=== PATIENT | male | born 1950 | race Caucasian/White ===

== ENCOUNTER 2024-08-02 08:47 | Inpatient (IN) | payer OTHER, SELFPAY ==
[2024-08-02] VITALS (9 sets, daily range): BP systolic 144–186; BP diastolic 73–94; BMI 30.5; BMI 28.9
[2024-08-02 04:21] LABS: % Basophils 0.3 % (0-2); % Eosinophils 0.6 % (0-6); % Immature Granulocytes 0.5 % (0-0.5); % Lymphocytes 7.5 % (20.5-51.1); % Monocytes 7.1 % (1.7-9.3); Absolute Eosinophils 0.1 10^3/uL (0-0.7); Absolute Immature Granulocytes 0.1 10^3/uL (0-0.05); Absolute Lymphocytes 0.8 10^3/uL (1.2-3.4); Absolute Monocytes 0.8 10^3/uL (0.1-0.6); Hematocrit 35.8 % (39.0-52.0); Hemoglobin 12.3 g/dL (13.0-18.0); Mean Corp Hgb Conc. 34.4 g/dL (33.0-37.0); Mean Corpuscular Hgb 28.3 pg (27.0-31.0); Mean Corpuscular Volume 82.3 fL (80.0-94.0); Mean Platelet Volume 9.1 fL (7.4-10.4); Nucleated Red Blood Cells % 0 % (-); Platelet Count 147 10^3/uL (130-400); Red Blood Cell Count 4.35 10^6/uL (4.70-6.10); Red Cell Dist. Width 13.2 % (11.5-14.5); White Blood Cell Count 10.7 10^3/uL (4.8-10.8)
[2024-08-02 04:51] LABS: ALT (SGPT) 26 U/L (0-50); AST (SGOT) 25 U/L (17-59); Albumin 3.9 g/dl (3.5-5.0); Alkaline Phosphatase 70 U/L (38-126); Blood Urea Nitrogen 21 mg/dl (9-20); Carbon Dioxide 24 mmol/L (22-30); Chloride 103 mmol/L (98-107); Estimated Creatinine Clearance 86 ml/min; Glucose 217 mg/dl (70-99); INR 1.07; Lipase 75 U/L (23-300); PT 14.2 Sec (11.4-14.6); Potassium 4.1 mmol/L (3.5-5.1); Sodium 136 mmol/L (135-145); Total Bilirubin 0.7 mg/dl (0.2-1.3); Total Protein 6.8 g/dl (6.3-8.2); eGFR > 60.00
[2024-08-02 04:52] LABS: APTT 31.1 Sec (23.4-35.0)
[2024-08-02 04:54] LABS: NT-proBNP 45.5 pg/ml; Troponin I < 0.012 ng/ml
[2024-08-02 04:55] LABS: D-Dimer 0.57 ug/mlFEU (0.00-0.50)
[2024-08-02 05:27] LABS: TSH 4.07 uIU/ml (0.47-4.68)
--- NOTE | 2024-08-02 06:19 | ED.GENMED ---
History of Present Illness
General
Chief Complaint: Blood Pressure Problem
Source: patient
Time Seen by Provider: 08/02/24 03:53
Nursing documentation reviewed up to this point in time: agreed with
History of Present Illness
History of Present Illness:
74-year-old male who presents to the emergency department for cough. He patient states that he has had some blood in his expectorated. Patient states that his cough began approximately 4 to 5 days prior to. He has gone to urgent care and
diagnosed with 1 to be. They did start him on Tamiflu. Patient states that since then his cough persisted. He started to notice blood when coughing. It was minimal at first but progressively worsened to the point where he states blood was coming
out of his nose. Patient was also concerned because when he had deep coughing, he had some chest pain. He denies any chest pain when not coughing or at rest. Patient denies being on any blood thinners.
Past History
Past History
ED Past Medical History: HTN
ED Past Surgical History: Other
Social History
Tobacco: Non-smoker
Drug: None
Personal:
Living: with family
Employment: Employed
Family History
Family History: Hypertension
Phy Exam
General Physical Exam
General Presentation: well appearing and no apparent distress
General Skin: warm and dry
General Habitus: normal
General Mental: alert
General Hydration: appears well hydrated
ENT Exam
ENT Exam: EOMI, pharynx normal, neck supple, normocephalic and other (Dried blood in the bilateral naris)
Eye Exam
Eye Exam: PERRL, cornea clear and conjunctiva normal
Cardiovascular Exam
Cardiovascular Exam: regular rate/rhythm, no edema, no murmur, normal peripheral pulses and tachycardia (At times tachycardic)
Pulmonary Exam
Pulmonary Exam: lungs clear, no respiratory distress, no rales, no crackles, no rhonchi, no stridor, no wheezing and no cough
Gastrointestinal Exam
Gastrointestinal Exam: normal bowel sounds, non tender, soft, no organomegaly, no pulsatile mass and non distended
Neurological Exam
Neurological Exam: alert, oriented x3, no motor deficits and speech normal
Musculoskeletal Exam
Musculoskeletal Exam: full ROM and no edema
Skin Exam
Skin Exam: normal color, warm/dry, no rash and no petechia
Psychiatric Exam
Psychiatric Exam: normal mood/affect
Course
Orders/Labs/Results
Orders:
Orders
08/02/24 03:56
Complete Blood Count/With Diff Urgent
Comprehensive Metabolic Panel Urgent
D-Dimer Urgent
Lipase Urgent
NT-proBNP Urgent
PTT Urgent
Prothrombin Time Urgent
TSH Urgent
Troponin I Urgent
08/02/24 05:36
CT Chest PE Study Urgent
Comment:
Reason For Exam: hemoptysis
08/02/24 Breakfast
1800 calorie (15 carb) Diabetic
At Your Request: Full Participation
08/02/24 06:28
Ampicillin/Sulbactam 3 G [Unasyn] 3 gm 0.9% Sodium Chloride 100 ml [Nss] 100 ml IV NOW
08/02/24 07:04
Admit/Transfer Patient As Directed
Co-Sign Provider:
Level of Care: Observation services
Assign to:: Medical/Surgical
Physician / Group: hospitalist
Diagnosis: aspiration pneumonia
Code Status As Directed
Resuscitation Status: Full Code
PRN Pain Medication Management As Directed
May give lesser potent ordered pain med per pt: Yes
preference::
Protocol:: Medication orders for pain may be administered in a
manner that supports deferring to patient preference
when the pt is:
- Requesting an ordered lesser potent pain medication.
Least to most potent pain medications are defined
as: acetaminophen < NSAID < tramadol < opioids
(morphine, oxycodone, hydromorphone).
- Requesting a lesser dose of the same medication IF
ORDERED.
- Requesting a less intrusive route of administration
if both routes are prescribed by the provider (PO <
IV).
08/02/24 07:43
Benzonatate [Tessalon Perles] 200 mg PO TIDPRN PRN
08/02/24 08:00
Losartan [Cozaar] 50 mg PO DAILY
Oseltamivir Phosphate [Tamiflu] 75 mg PO BID
08/02/24 08:16
Acetaminophen [Tylenol] 650 mg PO Q4HPRN PRN
Insulin Aspart Corrective Low [Novolog Flexpen-Low Resistance] See Protocol SC AC
Ipratropium/Albuterol Sulfate [Duoneb] 3 ml INH R Q4HPRN PRN
08/02/24 08:16
Activity As Directed
Activity Level: With Assistance
Bedside Glucose Monitoring As Directed
Frequency: AC&HS
Pneumatic Compression Sleeves As Directed
Type: Knee high
Vital Signs As Directed
Frequency: Per unit guidelines
Pulse Ox/spot Check [RESP] Routine
Quantity: 1
DX Deep Vein Thrombosis Video Routine
08/02/24 14:00
Ampicillin/Sulbactam 3 G [Unasyn] 3 gm 0.9% Sodium Chloride 100 ml [Nss] 100 ml IV Q6H
08/02/24 18:00
Rosuvastatin Calcium [Crestor] 5 mg PO QPM
Abnormal Lab Results
08/02/24
03:56
RBC 4.35 L 10^6/uL
(4.70-6.10)
Hgb 12.3 L g/dL
(13.0-18.0)
Hct 35.8 L %
(39.0-52.0)
Abs Immat Gran (auto) 0.1 H 10^3/uL
(0-0.05)
Absolute Neuts (auto) 9.0 H 10^3/uL
(1.4-6.5)
Absolute Lymphs (auto) 0.8 L 10^3/uL
(1.2-3.4)
Absolute Monos (auto) 0.8 H 10^3/uL
(0.1-0.6)
Neutrophils % 84.0 H %
(42.2-75.2)
Lymphocytes % 7.5 L %
(20.5-51.1)
D-Dimer 0.57 H ug/mlFEU
(0.00-0.50)
BUN 21 H mg/dl
(9-20)
Glucose 217 H mg/dl
(70-99)
08/02/24 03:56
08/02/24 03:56
Vital Signs
Initial and Last Documented VS:
Initial Vital Signs
BP
186/79
08/02/24 03:30
Last Documented Vital Signs
Temp Pulse Resp BP Pulse Ox
100.4 F H 94 18 159/83 98
08/03/24 13:13 08/03/24 13:13 08/03/24 13:13 08/03/24 13:13 08/03/24 13:13
*Critical Care Note
Total Time (30-74mins, 75-104mins- exclusive of procedures): Not Applicable
Update Note
Update Note:
CTA chest with IV contrast
IMPRESSION:
No pulmonary embolism. Artifact limits assessment. No definite aortic dissection or aneurysm.
Mild cardiomegaly and coronary artery disease. No pneumothorax or pleural effusion.
Aspiration pneumonia, worse on the right side. Consolidation in the right lower lung could reflect component of pneumonia versus malignancy. For example, series 104, image 197. Recommend repeat CT in 2 weeks after treatment of the infection, to
assess for resolution.
Finalized at 6:15 AM EST
Discussed CT scan findings with patient and including the possible malignancy. Patient and have no further questions. They will follow-up as needed.
Patient to be admitted to the hospitalist service. I did start Unasyn. This is for the aspiration pneumonia.
Hospitalist aware and agreed to accept patient.
ED Attending Note
-
Portions of this chart may have been created with voice recognition software.� Occasional wrong word or��sound alike� substitutions may have occurred due to the inherent limitations of voice recognition software.
Discharge Plan
Departure
Patient Disposition: Admit
Date of Disposition: 08/02/24
Time of Disposition: 06:38
Presentation/result/management discussed w/ accepting MD/DO: Hospitalist
Discharge Problem:
Aspiration pneumonia, Cough with hemoptysis, Possible pulmonary malignancy
Interventions
Interventions:
*Risk Screen - Suicide Last Done: 08/02/24 03:31
*General Assessment Last Done: 08/02/24 03:31
*Neglect/Abuse Screening Last Done: 08/02/24 03:31
*ED- Fall Risk Assessment Last Done: 08/02/24 03:54
*ED COVID-19 Vaccine History Last Done: 08/02/24 03:54
*Nursing Disposition Last Done: 08/02/24 10:28
ED- Cardiac Assessment Last Done: 08/02/24 07:51
ED- Neurological Assessment Last Done: 08/02/24 07:51
ED- Pulmonary Assessment Last Done: 08/02/24 07:51
Discharge Date and Time
Discharge Date/Time: 08/02/24 10:28
--- NOTE | 2024-08-02 06:52 | HPS.HSE ---
Family Physician
-
Family Physician: NOT KNOW UNKNOWN - PT DOES
Chief Complaint
-
Cough, hemoptysis
History of Present Illness
This is a 74-year-old male with past medical history of hypertension, diet-controlled diabetes, hyperlipidemia presents to the emergency department with cough productive of scanty mopped assist.
Patient reported that he started having a cough and some shortness of breath 4 days ago. He was seen at urgent care. He was diagnosed with influenza B at that time and started on Tamiflu. He had low-grade temps at home. Reported that he had
ongoing cough which she described as a very hacking cough. When the accident because he brings up sputum which is mixed with blood. The sputum also gets in his nose. He denies having epistaxis. He denies any bleeding from his nose causing a
postnasal drip. He is not on any blood thinners. He denies any history of bleeding diathesis.
He reports chest pain with coughing but otherwise no chest pain at rest with inspiration. Is a former smoker who quit 17 years ago. Denies any recent weight loss, night sweats. He denies any calf tenderness or lower extremity swelling. Denies
history of COPD, asthma, congestive heart failure.
In the emergency department he was afebrile, blood pressure was 160/80 with a pulse of 88, he was satting 95% on room air. Temp was 99.8. Troponin was negative, BNP was negative, TSH was normal. Additional labs including CBC was unremarkable,
electrolytes BUN and creatinine well within the normal range. Lipase and LFTs were normal.
CT of the chest shows no pulmonary embolism, no aortic dissection or aneurysm, mild cardiomegaly, no pneumothorax or pleural effusion. Aspiration pneumonia worse on the right side, consolidation in the right lower lung could reflect a component of
pneumonia versus malignancy. Repeat CT scan in 2 weeks after treatment of infection.
Medical History
Past Medical History
Past Medical History: Reports HTN, Hypercholesterolemia and NIDDM
Past Surgical History: Reports Other
Social History
Tobacco: Former Smoker
Alcohol: Occasional
Drug: None
Personal:
Living: With Family
Family History
Family History: Not pertinent
Allergies / Home Medications
Allergies reflects when Allergies were last updated in [facility].
Home Medications with original date entered in [facility]
Allergy/Medication List:
Allergies
Allergy/AdvReac Type Severity Reaction Status Date / Time
No Known Allergies Allergy Unverified 02/24/21 13:33
Home Medications
amlodipine 5 mg tablet 5 mg PO DAILY 30 days #30 tabs 02/24/21
Review of Systems
-
History Source: Patient
Constitutional: Reports No Symptoms
EENT: Reports No Symptoms
Respiratory: Reports Cough and Hemoptysis
Cardiac: Reports No Symptoms
Abdomen/GI: Reports No Symptoms
: Reports No Symptoms
Musculoskeletal: Reports No Symptoms
Skin: Reports No Symptoms
Neurological: Reports No Symptoms
Endocrine: Reports No Symptoms
Hematologic/Lymphatic: Reports No Symptoms
Psych: Reports No Symptoms
Physical Exam
Vital Signs
Vital Signs
Temp Pulse Resp BP Pulse Ox
99.8 F 94 17 166/85 96
08/02/24 03:31 08/02/24 06:30 08/02/24 06:30 08/02/24 05:00 08/02/24 06:30
Physical Exam
General: Well Developed, Well Nourished, No Apparent Distress and Comfortable
HEENT: NormoCephalic, Anicteric, Moist mucous membranes and Atraumatic
Respiratory: Clear, Rhonchi and Non Labored Respirations; No Accessory Resp Muscle Use
Cardiac: S1/S2 and Regular Rhythm
Breast: Deferred by me
GI: Soft and Non Tender
Rectal: Deferred by Provider
Genito-urinary: Deferred by me
Musculoskeletal: No Clubbing, No Cyanosis and No Edema
Skin: Warm
Neuro: AO x 3 and Nonfocal/grossly intact
Hematologic/Lymphatic: No Lymphadenopathy
Psych: Calm
Laboratory Results
-
08/02/24 03:56
08/02/24 03:56
Laboratory Results
PT 14.2 Sec (11.4-14.6) 08/02/24 03:56
INR 1.07 08/02/24 03:56
APTT 31.1 Sec (23.4-35.0) 08/02/24 03:56
Total Bilirubin 0.7 mg/dl (0.2-1.3) 08/02/24 03:56
AST 25 U/L (17-59) 08/02/24 03:56
ALT 26 U/L (0-50) 08/02/24 03:56
Alkaline Phosphatase 70 U/L (38-126) 08/02/24 03:56
Troponin I < 0.012 ng/ml 08/02/24 03:56
Lipase 75 U/L (23-300) 08/02/24 03:56
Data Reviewed
-
CT Scan: Report Reviewed by me
Medical Tests (Nuc Med, Echo, EKG etc): Image Personally Visualized and interpreted
Lab Data: Labs Reviewed by me
Old Records: Reviewed
Impression/Plan
-
IMPRESSION:
74-year-old with history of hypertension hyperlipidemia and diet-controlled diabetes otherwise healthy presents emergency department with cough and hemoptysis. He has influenza B diagnosed on Wednesday and has been on 3 days of Tamiflu. His cough
demonstrate scanty mopped assist. He does have a very hacking cough. Suspect this is secondary to bronchitis. However his CT scan shows aspiration pneumonia with a right lower lung consolidation that could reflect a component of pneumonia versus
malignancy.
PLAN:
1. Cough and hemoptysis - Aspiration pna versus malignancy. Seemed triggered by influenza B infection
- admit to med/surg obs
- unasyn for now with transition to augmentin
- complete course of tamiflu x 5 days (today and tomorrow)
- sputum culture and cytology
- supportive measures with antitussives
- consider Pulmonary consult
- outpatient f/u CT in 2 wks
- continue losartan and statin
- sliding scale insulin
DVT PPX - SCDs for now
Code status - full code
[2024-08-02] MEDS: UNASYN IV ×3 (07:40→20:31)
[2024-08-02] MEDS: COZAAR 50 MG PO (08:04)
[2024-08-02] MEDS: TAMIFLU 75 MG PO ×2 (08:04→20:31)
[2024-08-02] MEDS: TESSALON PERLES 200 MG PO ×3 (08:05→20:35)
[2024-08-02 09:20] LABS: Glucose - Point of Care 177 mg/dl (70-99)
--- NOTE | 2024-08-02 09:36 | CM ---
Addendum entered by DELMAR Johnson 08/02/24 10:46:
MEt with patient in room on floor. He signed the CHE[facility] letter .
Original Note:
Patient in ER with flu. SPoke to on phone. 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 They live in one level home with one step in. NO DME, VNA, SNF .
PCP added: Shameka Mirza
[facility]
TOld about observation status.
Will leave form in room where patient is admitted, 2128 for him to sign and give to nurse to give to CM.
Plan; HOme no needs.
[2024-08-02] MEDS: NOVOLOG FLEXPEN-LOW RESISTANCE 1 UNITS SC (09:42)
[2024-08-02 12:15] LABS: Glucose - Point of Care 203 mg/dl (70-99)
[2024-08-02] MEDS: NOVOLOG FLEXPEN-LOW RESISTANCE 2 UNITS SC (12:15)
--- NOTE | 2024-08-02 13:00 | CON.PUL ---
Consultation
Consultation Request
Date/Time Consultation Requested: 08/02/24
Date/Time Consultation Performed: 08/02/24
Performing Provider: Ran
Reason for Consultation: Cough
Medical History
-
History of Present Illness:
Patient is a 74-year-old male with previous history of hypertension, diabetes presenting to ER with hemoptysis for the past few days. Patient notes that he had had on and off coughing that was at times productive but developed hemoptysis in the
past few days. He was diagnosed with influenza B as an outpatient and started on Tamiflu. Arrived to [facility] with CT demonstrating abnormal right lower lobe findings. He denies any prior history of lung disease in the past. He was a former
smoker, quit 17 years ago. He admits to a pack a day for about 15 to 20 years. He does have family history of COPD and esophageal cancer in his parents who are also smokers. Has never seen pulmonary in the past.
Past Medical History
Past Medical History: Other (see list below)
Social History
Tobacco: Former Smoker
Alcohol: None
Drug: None
Family History
Family History: Cancer
Allergies / Home Medications
Allergies
Allergy/AdvReac Type Severity Reaction Status Date / Time
No Known Allergies Allergy Unverified 02/24/21 13:33
Home Medications
�Medication �Instructions �Recorded �Confirmed �Last Taken �Type
Staminol 1 cap PO DAILY 08/02/24 08/02/24 08/01/24 History
benzonatate 100 mg capsule 100 mg PO TIDPRN PRN cough 08/02/24 08/02/24 Unknown History
flaxseed oil 1,000 mg capsule 1,000 mg PO DAILY 08/02/24 08/02/24 08/01/24 History
garlic 300 mg capsule 300 mg PO DAILY 08/02/24 08/02/24 08/01/24 History
omega 1-dxp-kxt-fish oil 60 mg-90 1 cap PO DAILY 08/02/24 08/02/24 08/01/24 History
mg-500 mg capsule (Fish Oil)
oseltamivir 75 mg capsule (Tamiflu) 75 mg PO BID 08/02/24 08/02/24 08/01/24 History
saw palmetto 160 mg capsule 160 mg PO DAILY 08/02/24 08/02/24 08/01/24 History
therapeutic multivitamin 1 tab PO DAILY 08/02/24 08/02/24 08/01/24 History
Review of Systems
-
History Source: Patient
All other systems: Negative unless noted
Vitals / Labs / Diagnostic Testing
Vital Signs
Temp Pulse Resp BP Pulse Ox
98.2 F 90 17 150/85 93
08/02/24 11:04 08/02/24 11:04 08/02/24 11:04 08/02/24 11:04 08/02/24 11:04
Lab Data
08/02/24 03:56
08/02/24 03:56
Laboratory Results
08/02/24
03:56
PT 14.2
INR 1.07
APTT 31.1
Diagnostic Testing:
Physical Exam
-
HEENT: Normocephalic, Anicteric and Moist Mucous Membranes
Cardiovascular: S1/S2 and Regular Rhythm
Respiratory: Clear and Non-Labored Respirations
GI: Soft, Non Distended and Non Tender
Neurology: Awake, Alert, Oriented and No Motor Deficits
Skin: Warm, Dry and Good Color
General: Comfortable and Other (NAD)
Assessment
-
Patient is a 74-year-old male with previous history of hypertension, diabetes presenting to ER with hemoptysis for the past few days. Patient notes that he had had on and off coughing that was at times productive but developed hemoptysis in the
past few days. He was diagnosed with influenza B as an outpatient and started on Tamiflu. Arrived to [facility] ER with CT demonstrating abnormal right lower lobe findings. We are consulted for evaluation.
Hemoptysis
Abnormal CT scan, right lower lobe spiculated mass
Recent flu B, on Tamiflu
Possible superimposed pneumonia
Conditions present prior to admission
Hypertension
Diabetes, [id number]
Hypercholesterolemia
Former smoker
Plan
No oxygen was needed on admission, currently saturating >90% on RA
No prior history of need for oxygen at home
He denies any prior history of lung disease in the past.
He was a former smoker, quit 17 years ago. He admits to a pack a day for about 15 to 20 years.
He does have family history of COPD and esophageal cancer in his parents who are also smokers.
Has never seen pulmonary in the past.
Suspect patient has possible new right lower lobe malignancy given former smoking history
Would be reasonable to treat for viral and bacterial illness and repeat CT scan as an outpatient
He was agreeable to plan
For now can observe for further hemoptysis, he has not had recurrence since admission
Quantify
Will add nebulizers 4 times daily to help with coughing
Will need outpatient pulmonary evaluation in our office for PFTs and 6MWT
Reviewed with patient
After 24 hours of observation, he was agreeable to discharge in the AM if asymptomatic
Information in chart for d/c planning
Diagnostic Data
Chest X-Ray: 2012- No active cardiopulmonary disease.
CT Scan: CHEST 08/02/24- Right infrahilar mass versus focal consolidation such as pneumonia with moderate right lower lobe mild right upper lobe changes concerning for pneumonia. Aspiration pneumonia should be considered. Clinical and laboratory
correlation recommended. This could further be evaluated by PET imaging.
Echo: 2012- Normal left ventricular size, wall thickness and systolic function. No significant valvular disease. Normal echocardiogram. No prior study available for comparison.
PFT's:
Reports and relevant images were personally reviewed.
Total time spent on this consultation __55__ minutes which includes review of history, physical exam, medications, laboratory data, personal review of imaging, extensive review of outpatient records, discussion with care team and respiratory therapy.
[2024-08-02] MEDS: DUONEB 3 ML INH ×2 (16:00→18:02)
[2024-08-02] MEDS: CRESTOR 5 MG PO (17:07)
[2024-08-02 18:08] LABS: Glucose - Point of Care 128 mg/dl (70-99)
[2024-08-02] MEDS: NOVOLOG FLEXPEN-LOW RESISTANCE SC (18:22)
[2024-08-02 22:08] LABS: Glucose - Point of Care 218 mg/dl (70-99)
[2024-08-02] MEDS: TYLENOL 650 MG PO (22:15)
[2024-08-03] MEDS: UNASYN IV ×2 (02:42→08:54)
[2024-08-03 07:19] VITALS: BP 128/70
[2024-08-03] MEDS: DUONEB 3 ML INH ×2 (07:23→12:00)
[2024-08-03 08:36] LABS: Hematocrit 35.3 % (39.0-52.0); Mean Corpuscular Volume 82.5 fL (80.0-94.0); Mean Platelet Volume 8.8 fL (7.4-10.4); Platelet Count 155 10^3/uL (130-400); Red Blood Cell Count 4.28 10^6/uL (4.70-6.10); Red Cell Dist. Width 13.5 % (11.5-14.5); White Blood Cell Count 7.7 10^3/uL (4.8-10.8)
[2024-08-03 08:37] LABS: Glucose - Point of Care 175 mg/dl (70-99)
[2024-08-03] MEDS: COZAAR 50 MG PO (08:54)
[2024-08-03] MEDS: TESSALON PERLES 200 MG PO (08:55)
[2024-08-03] MEDS: NOVOLOG FLEXPEN-LOW RESISTANCE 1 UNITS SC (08:55)
[2024-08-03] MEDS: TAMIFLU 75 MG PO (08:55)
[2024-08-03 08:57] LABS: Glycohemoglobin (HgbA1c) 7.2 % (4.0-5.6)
[2024-08-03 09:04] LABS: Blood Urea Nitrogen 18 mg/dl (9-20); Calcium 9.1 mg/dl (8.4-10.2); Carbon Dioxide 26 mmol/L (22-30); Chloride 104 mmol/L (98-107); Estimated Creatinine Clearance 71 ml/min; Glucose 171 mg/dl (70-99); Sodium 137 mmol/L (135-145); eGFR > 60.00
--- NOTE | 2024-08-03 11:46 | CM ---
Patient seen at bedside.
IMM explained & signed.
PLAN: Home, no needs
to transport
[2024-08-03 13:13] VITALS: BP 159/83
--- NOTE | 2024-08-04 16:55 | W.DCSUMMARY ---
Discharge Summary
Discharge Data
Date of Admission: 08/02/24
Date of Discharge: 08/03/24
-
Pending Results: No
Hospital Course
Discharging Physician : Dr Kush Turcios
Disposition : Home
Primary care physician : Dr Shameka Mirza
Principal Discharge diagnosis :
Hemoptysis
Influenza B viral pneumonia
Aspiration pneumonia
Chronic Discharge diagnosis :
Essential hypertension
Type 2 diabetes
Hospital Course :
Patient is 74-year-old male with no mentioned past medical history came to ER for having ongoing cough and shortness of breath. Patient was seen in urgent care initially and was diagnosed with influenza B and was provided Tamiflu course. Patient
started to noticing tripp blood in cough and came to ER for further evaluation. In ER patient had a CT chest which ruled out pulmonary embolism, noted to having diffuse right lower lobe pneumonia and felt to be aspiration in nature. Patient was
started on empiric antibiotics and pulmonology was involved in care. Patient also has incidentally noted to having possible right lower lobe mass vs Eventration of the right hemidiaphragm. Pulmonary recommended for patient to finish course of
antibiotic and follow-up in office for repeat imaging. Patient will likely require bronchoscopic evaluation if right lower lobe consolidation/mass does not improve. Of note patient also on saw palmetto/garlic supplement and this can aggravate
bleeding diathesis, recommended to be off of it for next 1 week.
Important imaging findings :
None
Procedure findings :
None
Discharge Plan
-
Patient Disposition: Home (Routine Discharge)
Discharge Diagnosis/Procedures: Right lower lobe pneumonia, Influenza B viral pneumonia, Hemoptysis
Condition: Fair
Diet: Regular
Activity: As tolerated
Driving Restrictions: As prior to admission
Bathing Restrictions: OK to Shower
Activity Restrictions/Additional Instructions:
Please follow up with your Primary care regarding elevated Hbga1c of 7.2
Referrals:
Aneta Tong, DO [Active] - in two to three weeks (PFTs)
UNKNOWN - PT DOES,NOT KNOW [Family Provider] -
Additional Discharge Medication Instructions: Please stop taking saw palmetto and garlic supplements for 1 week as it can increase bleeding risk.
Prescriptions:
New
acetaminophen 325 mg Tablet
650 mg PO Q4HPRN PRN (Reason: mild pain/ELMORE/temp> 100.4F) Qty: 30 0RF
losartan 50 mg Tablet
50 mg PO DAILY Qty: 30 0RF
amoxicillin-pot clavulanate 875-125 mg tablet
1 tab PO BID Qty: 20 0RF
benzonatate 200 mg capsule
200 mg PO TID PRN (Reason: Cough) Qty: 14 0RF
Continued
therapeutic multivitamin Tablet
1 tab PO DAILY
flaxseed oil 1,000 mg Capsule
1,000 mg PO DAILY
oseltamivir [Tamiflu] 75 mg Capsule
75 mg PO BID
Rx Instructions:
start on 07/30/24
omega 6-enu-xax-fish oil [Fish Oil] 60-90-500 mg Capsule
1 cap PO DAILY
Staminol
1 cap PO DAILY
Discontinued
garlic 300 mg Capsule
300 mg PO DAILY
saw palmetto 160 mg Capsule
160 mg PO DAILY
benzonatate 100 mg Capsule
100 mg PO TIDPRN PRN (Reason: cough)
Discharge Orders:
Discharge Patient (As Directed); Ordered 08/03/24
Ordered By: Kush Turcios
Discharge Date and Time
Discharge Date/Time: 08/03/24 15:08
Print Language: ARMENIAN
--- NOTE | 2024-08-04 16:59 | W.PN.HOSP.TC ---
Today's Communication/Plan
-
d/c home
Assessment / Plan
Assessment / Plan
1. Hemoptysis
-Due to influenza B/aspiration pneumonia.
-Patient also been on saw palmetto and garlic supplement which can increase bleeding
2. Influenza B viral pneumonia
-Patient to finish course of Tamiflu, 2 more days left at home
3. Right lower lobe aspiration pneumonia
-Patient being provided Unasyn during the hospital stay
-Unable to provide any sputum culture
-Transition to oral Augmentin therapy for 7 days at discharge
-Tessalon per order per patient request for cough
4. Right lower lobe mass
-Possible atelectasis versus eventration of right diaphragm
-Pulmonology evaluated and recommended to follow-up in office post resolution of flu/pneumonia and may need repeat imaging/bronchoscopy
DVT PPX - SCDs
Code status - full code
More than 30 minutes spent in discharge including
Final examination of the patient
Summarizing hospital stay
Instructions for continuing care to all relevant caregivers
Preparation of discharge records, prescriptions, and referral forms
Total time spent (in minutes): 39 mins
Anticipated Discharge: Today
Subjective/Interval History
-
Date of Service: August 03, 2024
Delayed note for service provided on 08/03/2024 pneumonia
No further episodes of hematemesis
Patient febrile
No other issues
Objective Data
-
Vital Signs:
Vital Signs
Temp Pulse Resp BP Pulse Ox
100.4 F H 94 18 159/83 98
08/03/24 13:13 08/03/24 13:13 08/03/24 13:13 08/03/24 13:13 08/03/24 13:13
I&O
08/03/24 08/04/24 08/05/24
06:59 06:59 06:59
Intake Total 1260 / 1260 420 / 420
Balance 1260 / 1260 420 / 420
Review of Systems
-
Respiratory: Reports Cough; Denies Hemoptysis
Cardiac: Reports No Symptoms
Abdomen/GI: Reports No Symptoms
Physical Exam
-
General: No Apparent Distress and Comfortable
HEENT: Negative Oxygen
Respiratory: Clear to Auscultation
Cardiac: Regular Rhythm and S1/S2; Negative Murmur or Rub
GI: Soft, Nontender, Nondistended and Normal Bowel Sounds
Musculoskeletal: No Edema
Neuro: Awake, Alert, Oriented, No Motor Deficits and Nonfocal/Grossly Intact
Psych: Calm
== END 2024-08-03 15:08 | disposition home or self-care (01) | DRG 178 ==
LOC: 2 NORTH 08:47
PROVIDERS: ADMITTING PHYSICIAN Internal Medicine; ATTENDING PHYSICIAN Hospitalist; CONSULT PHYSICIAN Internal Medicine; EMERGENCY PHYSICIAN Student in an Organized Health Care Education/Training Program; PRIMARYCARE PHYSICIAN Family Medicine
DX: J69.8 Pneumonitis due to inhalation of other solids and liquids (principal); C34.31 Malignant neoplasm of lower lobe, right bronchus or lung; R04.2 Hemoptysis; J10.01 Influenza due to other identified influenza virus with the same other identified influenza virus pneumonia; I10 Essential (primary) hypertension; E78.00 Pure hypercholesterolemia, unspecified; E11.9 Type 2 diabetes mellitus without complications; I25.10 Atherosclerotic heart disease of native coronary artery without angina pectoris; Z87.891 Personal history of nicotine dependence; Z82.5 Family history of asthma and other chronic lower respiratory diseases; Z79.899 Other long term (current) drug therapy
CPT/HCPCS: 71275; 80048; 80053; 82962; 83036; 83690; 83880; 84443; 84484; 85025; 85027; 85379; 85610; 85730; 87040; 94640; 96365; 99285; Q9967

== ENCOUNTER → 2024-09-04 09:55 | Outpatient (REF) | payer OTHER, SELFPAY | LOC: HWRAD 09:55 | PROVIDERS: ATTENDING PHYSICIAN Nurse Practitioner Adult Health; FAMILY PHYSICIAN Internal Medicine | DX: J18.9 Pneumonia, unspecified organism (principal); R91.8 Other nonspecific abnormal finding of lung field | CPT/HCPCS: 71250 ==

== ENCOUNTER → 2024-10-26 07:58 | Outpatient (REF) | payer OTHER, SELFPAY | LOC: HWRAD 07:58 | PROVIDERS: ATTENDING PHYSICIAN Nurse Practitioner Adult Health; FAMILY PHYSICIAN Internal Medicine | DX: R91.8 Other nonspecific abnormal finding of lung field (principal) | CPT/HCPCS: 71250 ==

== ENCOUNTER 2025-05-21 19:07 | Emergency (ER) | payer OTHER, SELFPAY ==
[2025-05-21 19:14] VITALS: BP 146/82
[2025-05-21 19:49] LABS: Hematocrit 42.0 % (39.0-52.0); Hemoglobin 14.8 g/dL (13.0-18.0); Mean Corp Hgb Conc. 35.2 g/dL (33.0-37.0); Mean Corpuscular Volume 80.0 fL (80.0-94.0); Nucleated Red Blood Cells % 0 % (-); Platelet Count 165 10^3/uL (130-400); Red Cell Dist. Width 13.0 % (11.5-14.5)
[2025-05-21 20:16] LABS: ALT (SGPT) 61 U/L (0-50); AST (SGOT) 37 U/L (17-59); Albumin 4.1 g/dl (3.5-5.0); Alkaline Phosphatase 72 U/L (38-126); Blood Urea Nitrogen 32 mg/dl (9-20); Calcium 8.9 mg/dl (8.4-10.2); Carbon Dioxide 23 mmol/L (22-30); Chloride 99 mmol/L (98-107); Glucose 248 mg/dl (70-99); Potassium 4.5 mmol/L (3.5-5.1); Sodium 129 mmol/L (135-145); Total Protein 7.1 g/dl (6.3-8.2); eGFR 53.07
[2025-05-21 22:41] VITALS: BMI 31.3
--- NOTE | 2025-05-21 23:02 | ED.GENMED ---
History of Present Illness
General
Chief Complaint: Blood Sugar Problem
Source: patient
Exam Limitations: none
Time Seen by Provider: 05/21/25 22:45
History of Present Illness
History of Present Illness:
See MDM
Past History
Past History
ED Past Medical History: HTN
ED Past Surgical History: Other
Social History
Tobacco: Non-smoker
Drug: None
Personal:
Living: with family
Employment: Employed
Family History
Family History: Hypertension
Phy Exam
Physical Exam
Physical Exam:
See MDM
Course
Orders/Labs/Results
Orders:
Orders
05/21/25 19:30
B-Hydroxybutyrate Urgent
Complete Blood Count/With Diff Urgent
Comprehensive Metabolic Panel Urgent
05/21/25 23:01
HydrOXYZINE [Atarax] 25 mg PO NOW STA
Insulin Aspart [NOVOLOG vial] 3 units SC NOW STA
Abnormal Lab Results
05/21/25 05/21/25
19:30 23:18
Abs Immat Gran (auto) 0.1 H 10^3/uL
(0-0.05)
Absolute Lymphs (auto) 1.0 L 10^3/uL
(1.2-3.4)
Immature Gran % 1.1 H %
(0-0.5)
Lymphocytes % 18.0 L %
(20.5-51.1)
Monocytes % 11.3 H %
(1.7-9.3)
Sodium 129 L mmol/L
(135-145)
BUN 32 H mg/dl
(9-20)
Creatinine 1.4 H mg/dL
(0.7-1.3)
Glucose 248 H mg/dl
(70-99)
ALT 61 H U/L
(0-50)
POC Glucose 207 H mg/dl
(70-99)
05/21/25 19:30
05/21/25 19:30
Vital Signs
Initial and Last Documented VS:
Initial Vital Signs
Temp Pulse Resp BP Pulse Ox
98.2 F 84 22 146/82 98
05/21/25 19:14 05/21/25 19:14 05/21/25 19:14 05/21/25 19:14 05/21/25 19:14
Last Documented Vital Signs
Temp Pulse Resp BP Pulse Ox
98.2 F 74 18 125/68 97
05/21/25 19:14 05/21/25 23:25 05/21/25 23:25 05/21/25 23:25 05/21/25 23:25
MDM/Problems Addressed
Differential Diagnosis Includes:
Note:
CHIEF COMPLAINT(S)
Elevated blood sugar and persistent itching.
HISTORY OF PRESENT ILLNESS
The patient is a 75-year-old male with no official diagnosis of diabetes, presenting with concerns of elevated blood sugar and itching. The patient had a hemoglobin A1c of 7.2 and a blood glucose level of 154 mg/dL as per recent physical examination
three weeks ago. Five days ago, the patient developed a fever and was diagnosed with a viral infection at urgent care, where a COVID test and blood work were conducted. The patient reports increased urination and fluid intake correlating with
elevated blood sugar levels; symptoms of itching with no rash or linear valadez noted.
PAST MEDICAL AND SURGICAL HISTORY
No specific past medical or surgical history was mentioned.
PHYSICAL EXAM
General: Alert, no acute distress.
Skin: Warm, dry. Urticaria noted
Head: Normocephalic, atraumatic
Neck: Appears supple, trachea midline.
Eyes, Ears, Nose, Mouth, and Throat: Mildly dry mucous membranes
Cardiovascular: No signs of cyanosis
Respiratory: Respirations are non-labored.
Abdomen: Non-distended
Musculoskeletal: No deformities
Neurological: No focal neurological deficit observed.
Psychiatric: Cooperative, appropriate mood and affect.
PLAN
- Prescribe metformin for hyperglycemia. The patient has the option to consult his primary care physician before initiating treatment.
- Administer a dose of insulin to reduce the current elevated blood sugar level.
- Provide Atarax (hydroxyzine) to address itching.
- Emphasize on follow-up with primary care for in-depth blood work in four months.
DIFFERENTIAL DIAGNOSIS
The Differential Diagnosis includes, in no particular order and is not limited to:
- Hyperglycemia
- Diabetes Mellitus
- Viral Infection
- Drug Eruption
- Pruritus secondary to elevated glucose
- Scabies (ruled out on examination)
- Kidney function abnormalities (though not currently suspect)
- Systemic inflammatory response
- Allergic reaction
SUMMARY OF ENCOUNTER
The patient was evaluated in the emergency department due to elevated blood sugar levels and persistent pruritus. A recent diagnosis of a viral infection was addressed, and hyperglycemia was attributed to a possible combination of stress and
illness. Blood glucose management was considered, with current symptoms managed and reassurance given. Future appointments for further evaluation and possible lifestyle modifications were encouraged.
MEDICATION RECONCILIATION
- Prescribed Metformin.
- Insulin administered to manage elevated blood sugar.
- Prescribed Hydroxyzine (Atarax) for itching.
MEDICAL DECISION MAKING
- Number and Complexity of Problems Addressed: Chronic conditions affecting care include hyperglycemia, slightly elevated blood glucose, and pruritus.
- Data:
- Category 1: Tests and documents include prior blood glucose levels and recent viral infection diagnosis.
- Category 2: None applicable.
- Category 3: Discussed treatment plan and management with the patient.
- Risk: Treatment involving prescription medication management was considered necessary today with supplementary insulin. Based on the recent viral infection, the risk of complications or significant morbidity was low at the current stage.
DIAGNOSIS
- Hyperglycemia, unspecified (R73.9)
- Pruritus, unspecified (L29.9)
SUMMARY OF ENCOUNTER
The patient, a 75-year-old male, came to the emergency department with concerns of elevated blood sugar and persistent itching. Recently, the patients primary care doctor noted an elevation in his hemoglobin A1c, suggesting potential new onset
diabetes. The patient expressed reluctance in initiating metformin therapy and preferred to discuss further management with his primary care physician. For immediate glucose management, insulin was administered to lower his elevated blood sugar
levels. Additionally, the patient exhibited signs consistent with a viral rash, and hydroxyzine was provided to address the itching.
PLAN
The patient will follow up with his primary care physician to discuss potential initiation of metformin therapy. He will maintain a diet and exercise regimen to aid in blood sugar management.
INDEPENDENT REVIEW OF LABS AND INTERPRETATION OF TESTS
My independent review of the labs includes a hemoglobin A1c of 7.2 and a blood glucose level of 154 mg/dL, indicating elevated blood sugar levels consistent with hyperglycemia.
MEDICATION RECONCILIATION
- Administered insulin for immediate reduction of elevated blood sugar.
- Provided hydroxyzine for itching.
MEDICAL DECISION MAKING
- Number and Complexity of Problems Addressed: Chronic conditions affecting care include hyperglycemia, slightly elevated blood glucose, and pruritus. Differential Diagnosis includes hyperglycemia, diabetes mellitus, viral infection, drug eruption,
pruritus secondary to elevated glucose, allergy or systemic inflammatory response.
- Data:
- Category 1: Independent review of hemoglobin A1c and blood glucose levels from the recent physical examination.
- Risk: Prescription medication was prescribed. The patient was managed safely in the outpatient setting with prescribed medications and plans for follow-up care, with insulin administered to address immediate hyperglycemia.
DIAGNOSIS
- Hyperglycemia, unspecified (R73.9)
- Pruritus, unspecified (L29.9)
*Pulse Oximetry
SaO2: 98
Oxygen Mode of Delivery: Room air
Patient hypoxic: no
*Critical Care Note
Total Time (30-74mins, 75-104mins- exclusive of procedures): Not Applicable
ED Attending Note
-
Portions of this chart may have been created with voice recognition software.� Occasional wrong word or��sound alike� substitutions may have occurred due to the inherent limitations of voice recognition software.
Discharge Plan
Departure
Patient Disposition: Home (Routine Discharge)
Patient with high blood pressure during this ER visit?: Yes
Discharge Problem:
Acute hyperglycemia, Rash
Instructions: High blood sugar in adults - ED (DC), BLOOD PRESSURE
Prescriptions:
New
hydroxyzine HCl 25 mg tablet
25 mg PO BID PRN (Reason: itching) Qty: 20 0RF
No Action
therapeutic multivitamin Tablet
1 tab PO DAILY
flaxseed oil 1,000 mg Capsule
1,000 mg PO DAILY
oseltamivir [Tamiflu] 75 mg Capsule
75 mg PO BID
Rx Instructions:
start on 07/30/24
omega 1-jdz-rhd-fish oil [Fish Oil] 60-90-500 mg Capsule
1 cap PO DAILY
Staminol
1 cap PO DAILY
acetaminophen 325 mg Tablet
650 mg PO Q4HPRN PRN (Reason: mild pain/ELMORE/temp> 100.4F) Qty: 30 0RF
losartan 50 mg Tablet
50 mg PO DAILY Qty: 30 0RF
amoxicillin-pot clavulanate 875-125 mg tablet
1 tab PO BID Qty: 20 0RF
benzonatate 200 mg capsule
200 mg PO TID PRN (Reason: Cough) Qty: 14 0RF
Interventions
Interventions:
*General Assessment Last Done: 05/21/25 22:42
*Neglect/Abuse Screening Last Done: 05/21/25 19:14
*ED COVID-19 Vaccine History Last Done: 05/21/25 22:42
*ED Influenza Vaccine History Last Done: 05/21/25 22:42
[facility] Fall Risk Assessment Tool Last Done: 05/21/25 22:41
*Risk Screen - Suicide (C-SSRS) Last Done: 05/21/25 19:14
ED- Neurological Assessment Last Done: 05/21/25 22:42
ED-Skin Assessment Last Done: 05/21/25 22:42
Discharge Date and Time
Print Language: MARSHALLESE
[2025-05-21 23:19] LABS: Glucose - Point of Care 207 mg/dl (70-99)
[2025-05-21] MEDS: NOVOLOG vial 3 UNITS SC (23:20)
[2025-05-21] MEDS: ATARAX 25 MG PO (23:20)
[2025-05-21 23:25] VITALS: BP 125/68
== END 2025-05-21 23:31 | disposition home or self-care (01) ==
LOC: EMR 19:07
PROVIDERS: Physician Assistant; EMERGENCY PHYSICIAN Student in an Organized Health Care Education/Training Program; FAMILY PHYSICIAN Internal Medicine
DX: R73.9 Hyperglycemia, unspecified (principal); I10 Essential (primary) hypertension; L29.9 Pruritus, unspecified
CPT/HCPCS: 96372; 99284; 80053; 82010; 82962; 85025